=== PATIENT | female | born 1960 | race Caucasian/White ===

== ENCOUNTER → 2019-02-28 | Outpatient (CLI) | payer MEDICARE, MEDICAID ==
--- NOTE | 2019-03-01 07:39 | REP ---
Lumbar spine five views: There are no comparisons. There is mild scoliosis convex right. Vertebral body heights and alignment are normal. There is degenerative disc disease at L4-5 L5 S1. There is facet osteoarthritis and L4-5 and L5 S1. There is no spondylolysis or spondylolisthesis. Sacroiliac articulations are unremarkable. Impression: Mild scoliosis. Degenerative disc disease as described. Facet osteoarthritis as described. Electronically Signed by Abhishek Caballero MD 03/01/2019 07:31 A
== END ==
LOC: M ADAMS 16:41
PROVIDERS: ATTEND Physician Assistant
DX: M51.36 Other intervertebral disc degeneration, lumbar region (principal); M51.37 Other intervertebral disc degeneration, lumbosacral region; M47.816 Spondylosis without myelopathy or radiculopathy, lumbar region; M47.817 Spondylosis without myelopathy or radiculopathy, lumbosacral region; M41.80 Other forms of scoliosis, site unspecified

== ENCOUNTER → 2019-03-29 | Outpatient (CLI) | payer MEDICARE, MEDICAID ==
--- NOTE | 2019-03-29 14:38 | REP ---
MRI cervical spine without contrast: History: Degenerative disc disease. Neck pain. Rule out stenosis. No comparison cervical spine imaging. Technique: Sagittal and axial T1 and T2-weighted scans are acquired in the usual fashion with and without fat saturation. Sequences include spin echo, turbo spin-echo, and STIR imaging sequences. MRI findings: There is straightening of the normal cervical lordosis. Cervical vertebral body heights are preserved. Cortical and medullary bone signal intensity are normal. Craniocervical junction is unremarkable. Cervical cord is normal in coarse, caliber and signal intensity. No extra spinal abnormality is appreciated. Sagittal and axial images taken at the C2-3 disc level demonstrate minimal central disc bulging. There is uncovertebral spurring on the left producing some neural foraminal encroachment mild in degree. At C3-4, there is diffuse disc bulging. Mild bilateral uncovertebral spurring is noted producing neural foraminal encroachment. No central canal stenosis is seen. No focal disc protrusion. At C4-C5, there is minimal diffuse disc bulging. Minimal uncovertebral spurring bilaterally. At C5-C6, neural foramina are adequate. Minimal central disc bulging is seen. At C6-7, there is no evidence of neural foraminal narrowing, central canal stenosis or disc herniation. The C7-T1 level is unremarkable. Impression: Degenerative spondylosis most pronounced in the upper cervical spine at C3-4 and C2-3 and to a lesser extent C4-5 as above. Multilevel uncovertebral spurring produces neural foraminal encroachment mild in degree. Electronically Signed by Kiran Figueredo MD 03/29/2019 03:13 P
--- NOTE | 2019-03-29 14:46 | REP ---
MRI LUMBAR SPINE WITHOUT CONTRAST: HISTORY: Lumbar degenerative disc disease. Back pain. Comparison radiographs are from February 28, 2019. TECHNIQUE: Sagittal and axial T1- and T2-weighted scans are acquired in the usual fashion with and without fat saturation. Sequences include spin echo, turbo spin echo, and STIR imaging sequences. MRI FINDINGS: There is straightening of the normal lumbar lordosis. Lumbar vertebral body heights are preserved. No bony destructive lesion is seen. There are mild degenerative disc changes at L1-2, L4-5, L5-S1, and L3-4. The tip of the conus medullaris is normal in appearance and position at this L1-L2. No extra vertebral abnormality is observed. Axial and sagittal images taken at the L1-L2 show minimal diffuse central disc bulging indenting the thecal sac. There is no evidence of central canal stenosis or neural foraminal narrowing. At L2-L3, axial and sagittal images show no abnormality. At L3-L4, there is minimal diffuse disc bulging subtly indenting the ventral margin of the thecal sac. No central canal stenosis or neural foraminal narrowing is seen. At L4-5, there is a grade 1, 2 mm degenerative L4-5 spondylolisthesis. The disc is narrowed at L4-5 and there is diffuse posterior disc bulging. There is moderate osteoarthritic facet hypertrophy bilaterally at L4-5. No central canal stenosis is seen. The nerve roots exit the neural foramina without evidence of compression. At L5-S1, there is mild central disc bulging. Facet hypertrophy is noted bilaterally. There is moderate to marked right-sided neural foraminal narrowing due to facet hypertrophy disc bulging and developmental narrowing of the neural foramen. Some reactive marrow changes are seen on either side of the L5-S1 disc space. IMPRESSION: Degenerative spondylosis changes. There is a mild degenerative 2 mm L4-5 spondylolisthesis. Advanced facet hypertrophy is noted bilaterally L4-5. There is marked right-sided L5-S1 neural foraminal narrowing. Electronically Signed by Kiran Figueredo MD 03/29/2019 03:13 P
== END ==
LOC: M RAD 13:00
PROVIDERS: ATTEND Physician Assistant
DX: M47.817 Spondylosis without myelopathy or radiculopathy, lumbosacral region (principal); M43.16 Spondylolisthesis, lumbar region; M51.36 Other intervertebral disc degeneration, lumbar region; M50.30 Other cervical disc degeneration, unspecified cervical region

== ENCOUNTER → 2020-03-13 | Outpatient (REF) | payer MEDICARE, MEDICAID | LOC: M LAB REF 17:13 | PROVIDERS: ATTEND Physician Assistant | DX: J20.9 Acute bronchitis, unspecified (principal) | CPT/HCPCS: 87486; 87581; 87633; 87798; U0002 ==

== ENCOUNTER → 2022-08-31 | Outpatient (CLI) | payer MEDICARE ==
[2022-08-31 10:14] LABS: HEMATOCRIT 45.8 % (36.0-47.0); HEMOGLOBIN 14.8 g/dl (12.0-15.5); MEAN CORPUSCULAR HGB CONC 32.3 g/dl (32.0-36.5); PLATELET COUNT, AUTOMATED 207 10^3/uL (150-450); RED BLOOD COUNT 4.77 10^6/uL (4.00-5.40); WHITE BLOOD COUNT 3.9 10^3/uL (4.0-10.0)
[2022-08-31 10:37] LABS: HEMOGLOBIN A1c 5.2 %
[2022-08-31 10:57] LABS: ALBUMIN 3.4 GM/DL (3.2-5.2); ALT/SGPT 21 U/L (12-78); BILIRUBIN,TOTAL 0.3 MG/DL (0.2-1.0); BLOOD UREA NITROGEN 18 MG/DL (7-18); CALCIUM LEVEL 8.7 MG/DL (8.8-10.2); CARBON DIOXIDE LEVEL 30 MEQ/L (21-32); CHLORIDE LEVEL 107 MEQ/L (98-107); CHOLESTEROL LEVEL 295 MG/DL (<200); CHOLESTEROL RISK RATIO 4.916 (<5); CREATININE FOR GFR 0.74 MG/DL (0.55-1.30); FREE T4 0.85 NG/DL (0.76-1.46); GLOMERULAR FILTRATION RATE > 60.0 (>45); GLUCOSE, FASTING 98 MG/DL (70-100); HDL CHOLESTEROL 60 MG/DL (>40); LDL CHOLESTEROL 185 MG/DL (<100); NON-HDL-C 235 MG/DL; NT-PRO BNP 77 PG/ML (<125); POTASSIUM SERUM 4.7 MEQ/L (3.5-5.1); SODIUM LEVEL 139 MEQ/L (136-145); TOTAL PROTEIN 7.3 GM/DL (6.4-8.2); TRIGLYCERIDES LEVEL 252 MG/DL (<150)
== END ==
LOC: M RAD 09:28
PROVIDERS: ATTEND Family Medicine
DX: R03.0 Elevated blood-pressure reading, without diagnosis of hypertension (principal); R07.9 Chest pain, unspecified; E78.5 Hyperlipidemia, unspecified; R06.09 Other forms of dyspnea; Z79.899 Other long term (current) drug therapy

== ENCOUNTER → 2022-09-23 | Outpatient (CLI) | payer MEDICARE | LOC: M PLAIMG 14:31 | PROVIDERS: ATTEND Family Medicine | DX: R06.09 Other forms of dyspnea (principal); Z12.31 Encounter for screening mammogram for malignant neoplasm of breast ==

== ENCOUNTER → 2022-09-23 | Outpatient (CLI) | payer MEDICARE | LOC: M WHC 13:55 | PROVIDERS: ATTEND Family Medicine | DX: Z12.31 Encounter for screening mammogram for malignant neoplasm of breast (principal) ==

== ENCOUNTER 2022-11-29 12:18 | Emergency (ER) | payer MEDICARE ==
[~2022-11-29] VITALS: Ht 165.1 cm; Wt 72.7 kg
[2022-11-29] MEDS ORDERED: tiZANidine 4 MG TAB PO ONE (12:55)
[2022-11-29] MEDS ORDERED: MORPHINE 4 MG/ML 1ML VIAL IV PRN (12:55)
[2022-11-29 13:20] LABS: BASO % 0.4 % (0.0-1.0); EOS # 0.1 10^3/uL (0.0-0.5); EOS % 2.3 % (0.0-3.0); HEMATOCRIT 44.2 % (36.0-47.0); HEMOGLOBIN 14.5 g/dl (12.0-15.5); LYMPH # 1.2 10^3/uL (1.5-5.0); LYMPH % 21.8 % (24.0-44.0); MEAN CORPUSCULAR HEMOGLOBIN 31.2 pg (27.0-33.0); MEAN CORPUSCULAR HGB CONC 32.8 g/dl (32.0-36.5); MEAN CORPUSCULAR VOLUME 95.1 fl (80.0-96.0); MONO # 0.4 10^3/uL (0.0-0.8); MONO % 7.7 % (2.0-8.0); NEUTROPHILS # 3.8 10^3/uL (1.5-8.5); NEUTROPHILS % 67.4 % (36.0-66.0); PLATELET COUNT, AUTOMATED 211 10^3/uL (150-450); RED BLOOD COUNT 4.65 10^6/uL (4.00-5.40); WHITE BLOOD COUNT 5.6 10^3/uL (4.0-10.0)
[2022-11-29 13:55] LABS: CK-MB VALUE MASS < 1.0 NG/ML (<3.6)
[2022-11-29 13:56] LABS: LIPASE 26 U/L (12-53)
[2022-11-29 13:57] LABS: BILIRUBIN,DIRECT 0.1 MG/DL (<0.4)
[2022-11-29 13:58] LABS: ALBUMIN 3.5 G/DL (3.2-5.2); ALKALINE PHOSPHATASE 92 U/L (46-116); ALT/SGPT 25 U/L (7.0-40); AST/SGOT 27 U/L (<34); BILIRUBIN,TOTAL 0.4 MG/DL (0.3-1.2); BLOOD UREA NITROGEN 15 MG/DL (9-23); CALCIUM LEVEL 9.1 MG/DL (8.3-10.6); CARBON DIOXIDE LEVEL 26 MMOL/L (20-31); CHLORIDE LEVEL 104 MMOL/L (98-107); CREATININE FOR GFR 0.62 MG/DL (0.55-1.30); GLOMERULAR FILTRATION RATE > 60.0 (>45); GLUCOSE, FASTING 93 MG/DL (74-106); POTASSIUM SERUM 4.6 MMOL/L (3.5-5.1); SODIUM LEVEL 138 MMOL/L (136-145); TOTAL PROTEIN 7.2 G/DL (5.7-8.2)
[2022-11-29 13:59] LABS: FREE T4 1.19 NG/DL (0.89-1.76)
[2022-11-29 14:00] LABS: CPK CREATINE PHOSPHOKINASE 35 U/L (34-145)
[2022-11-29 14:01] LABS: MB/CK RELATIVE INDEX 2.85 (< OR =4); THYROID STIMULATING HORMONE 1.375 uIU/ML (0.55-4.78)
[2022-11-29 14:04] LABS: RSV AMPLIFICATION NEGATIVE (NEGATIVE)
[2022-11-29] MEDS ORDERED: ISOVUE-370 76% 100ML VIAL As Ordered ONE (14:11)
[2022-11-29 15:07] LABS: CK-MB VALUE MASS < 1.0 NG/ML (<3.6)
[2022-11-29 15:17] LABS: CPK CREATINE PHOSPHOKINASE 31 U/L (34-145); MB/CK RELATIVE INDEX 3.22 (< OR =4)
[2022-11-29] MEDS ORDERED: PERC5TAB12 PO (15:34)
[2022-11-29] MEDS ORDERED: LIDO5DIS41 TOP (15:34)
[2022-11-29] MEDS ORDERED: COLA100C5 PO (15:34)
[2022-11-29 16:00] VITALS: BP 125/84
== END 2022-11-29 16:18 | disposition home or self-care (01) ==
LOC: M ED 12:18
DX: J18.9 Pneumonia, unspecified organism (principal); S22.32XA Fracture of one rib, left side, initial encounter for closed fracture; I10 Essential (primary) hypertension; Z86.73 Personal history of transient ischemic attack (TIA), and cerebral infarction without residual deficits; Z79.899 Other long term (current) drug therapy
CPT/HCPCS: 36415; 71045; 71275; 80048; 80076; 81000; 81015; 82550; 82553; 83690; 83880; 84439; 84443; 84484; 85025; 85379; 87040; 87086; 87631; 93005; 93041; 94010; 94760; 96374; 99285; Q9967

== ENCOUNTER → 2023-03-23 | Outpatient (CLI) | payer MEDICARE ==
[~2023-03-23] MED LIST: COLA100C5 PO; LIDO5DIS41 TOP; PERC5TAB12 PO
[2023-03-23 15:18] LABS: ALBUMIN 3.9 G/DL (3.2-5.2); ALKALINE PHOSPHATASE 106 U/L (46-116); ALT/SGPT 27 U/L (7.0-40); AST/SGOT 17 U/L (<34); BILIRUBIN,TOTAL 0.6 MG/DL (0.3-1.2); BLOOD UREA NITROGEN 14 MG/DL (9-23); CALCIUM LEVEL 9.4 MG/DL (8.3-10.6); CARBON DIOXIDE LEVEL 30 MMOL/L (20-31); CHLORIDE LEVEL 104 MMOL/L (98-107); CHOLESTEROL LEVEL 169 MG/DL (<200); CHOLESTEROL RISK RATIO 2.64 (<5); CREATININE FOR GFR 0.74 MG/DL (0.55-1.30); GLOMERULAR FILTRATION RATE > 60.0 (>45); GLUCOSE, FASTING 91 MG/DL (74-106); LDL CHOLESTEROL 80.2 MG/DL (<100); POTASSIUM SERUM 4.6 MMOL/L (3.5-5.1); SODIUM LEVEL 139 MMOL/L (136-145); TOTAL PROTEIN 7.4 G/DL (5.7-8.2); TRIGLYCERIDES LEVEL 124 MG/DL (<150)
== END ==
LOC: M PLALAB 09:12
PROVIDERS: ATTEND Family Medicine
DX: E78.5 Hyperlipidemia, unspecified (principal)